=== PATIENT | female | born 1955 | race Caucasian/White ===

== ENCOUNTER 2017-02-22 06:37 | Inpatient (IN) | payer OTHER ==
[~2017-02-22] VITALS: Ht 157.5 cm; Wt 60.0 kg
[2017-02-22] MEDS ORDERED: CEFPODOXIME PR200 MG PO (10:48)
[2017-02-22] MEDS ORDERED: DOXYCYCLINE MO100 MG PO (10:50)
[2017-02-22] MEDS ORDERED: FLAGYL500 MG PO (10:50)
[2017-02-22] MEDS ORDERED: MILLIPRED5 MG PO (10:51)
[2017-02-22] MEDS ORDERED: TENORMIN 50 MG50 MG PO (10:52)
[2017-02-22] MEDS ORDERED: NEURONTIN 400400 MG PO (10:53)
[2017-02-22] MEDS ORDERED: OMEPRAZOLE20 MG PO (10:53)
[2017-02-22] MEDS ORDERED: LORTAB 5-325 M1 EACH PO (10:55)
[2017-02-22] MEDS ORDERED: ISOSORBIDE MONO60 MG PO (10:55)
[2017-02-22] MEDS ORDERED: JANUVIA 100 MG100 MG PO (10:56)
[2017-02-22] MEDS ORDERED: PROTONIX 40 MG40 M1 PO (10:57)
[2017-02-22] MEDS ORDERED: KLONOPIN TAB 00.5 MG PO (10:57)
[2017-02-22] MEDS ORDERED: TESSALON PERLE100 MG PO (10:58)
[2017-02-22] MEDS ORDERED: NORVASC 5 MG TAB5 MG PO (10:58)
[2017-02-22] MEDS ORDERED: GLUCOPHAGE 500500 MG PO (10:59)
[2017-02-22] MEDS ORDERED: AZITHROMYCIN250 MG PO (11:00)
[2017-02-22] MEDS ORDERED: PREDNISOLONE SO10 MG PO (11:01)
[2017-02-22] MEDS ORDERED: TRAZODONE HCL150 MG PO (11:01)
[2017-02-23 04:03] LABS: BUN/CREATININE RATIO 24 (0-10)
[2017-02-23 05:08] LABS: RED BLOOD COUNT 3.07 M/UL (4.00-5.10); WHITE BLOOD COUNT 14.2 K/UL (4.5-11.0)
[2017-02-23 05:10] LABS: HEMOGLOBIN 6.8 gm/dl (12.3-15.3)
[2017-02-24 08:16] LABS: WHITE BLOOD COUNT 12.3 K/UL (4.5-11.0)
[2017-02-24 08:18] LABS: RED BLOOD COUNT 4.74 M/UL (4.00-5.10)
[2017-02-24 08:32] LABS: BUN/CREATININE RATIO 28 (0-10)
[2017-02-24 12:45] LABS: HEMOGLOBIN 11.5 gm/dl (12.3-15.3)
[2017-02-25 05:21] LABS: HEMOGLOBIN 11.1 gm/dl (12.3-15.3); RED BLOOD COUNT 4.65 M/UL (4.00-5.10); WHITE BLOOD COUNT 12.4 K/UL (4.5-11.0)
[2017-02-25 05:25] LABS: BUN/CREATININE RATIO 30 (0-10)
[2017-02-27 05:00] LABS: HEMOGLOBIN 12.2 gm/dl (12.3-15.3); RED BLOOD COUNT 5.23 M/UL (4.00-5.10); WHITE BLOOD COUNT 10.1 K/UL (4.5-11.0)
[2017-02-27 05:22] LABS: BUN/CREATININE RATIO 28 (0-10)
[2017-02-28 06:25] LABS: HEMOGLOBIN 11.1 gm/dl (12.3-15.3); RED BLOOD COUNT 4.66 M/UL (4.00-5.10); WHITE BLOOD COUNT 9.3 K/UL (4.5-11.0)
[2017-02-28 06:43] LABS: BUN/CREATININE RATIO 28 (0-10)
[2017-03-01 07:00] LABS: BUN/CREATININE RATIO 33 (0-10)
[2017-03-01 07:28] LABS: HEMOGLOBIN 12.1 gm/dl (12.3-15.3); RED BLOOD COUNT 5.11 M/UL (4.00-5.10); WHITE BLOOD COUNT 10.5 K/UL (4.5-11.0)
[2017-03-03 08:34] LABS: BUN/CREATININE RATIO 32 (0-10)
[2017-03-06] MEDS ORDERED: LASIX 40 MG TAB40 MG PO (12:25)
[2017-03-06] MEDS ORDERED: LOPRESSOR50 MG PO (12:26)
[2017-03-06] MEDS ORDERED: K-DUR TAB 20 M20 MEQ PO (12:28)
[2017-03-06] MEDS ORDERED: PAIN RELIEF325 MG PO (12:30)
[2017-03-06] MEDS ORDERED: IPRAT-ALBUT 0.5-3 ML INH (12:31)
[2017-03-06] MEDS ORDERED: COMBIVENT0.074 GM/I INH (12:35)
[2017-03-06] MEDS ORDERED: FERROUS SULFAT325 M2 PO (12:36)
[2017-03-06] MEDS ORDERED: THERAGRAN M TAB1 EA PO (12:37)
--- NOTE | 2017-03-06 14:42 | NUR ---
PATIENT AMBULATES IN HALLWAY X 2, ROOM AIR, PULSE OX 96-97% NO RESPIRATORY DISTRESS NOTED. MICROBIOLOGICAL LAB TECHNICIAN AVAILABLE AND SHE NOTIFIED MD
== END 2017-03-06 15:16 | disposition short-term general hospital (02) | DRG 208 ==
LOC: CCU 09:44 → MED SURG 4 02-27 11:33
PROVIDERS: Family Medicine; Internal Medicine Infectious Disease; Internal Medicine Pulmonary Disease; Physician Assistant; ADMIT Internal Medicine
PROC: 5A1945Z Respiratory Ventilation, 24-96 Consecutive Hours (ICD-10-PCS; principal; 2017-02-22)
PROC: 0BH17EZ Insertion of Endotracheal Airway into Trachea, Via Natural or Artificial Opening (ICD-10-PCS; principal; 2017-02-22)
PROC: 0BJ08ZZ Inspection of Tracheobronchial Tree, Via Natural or Artificial Opening Endoscopic (ICD-10-PCS; 2017-02-23)
PROC: 0B9B8ZX Drainage of Left Lower Lobe Bronchus, Via Natural or Artificial Opening Endoscopic, Diagnostic (ICD-10-PCS; 2017-02-23)
PROC: 30233N1 Transfusion of Nonautologous Red Blood Cells into Peripheral Vein, Percutaneous Approach (ICD-10-PCS; 2017-02-23)
DX: J96.22 Acute and chronic respiratory failure with hypercapnia (principal); I50.33 Acute on chronic diastolic (congestive) heart failure; J69.0 Pneumonitis due to inhalation of food and vomit; E87.2 Acidosis; J44.0 Chronic obstructive pulmonary disease with (acute) lower respiratory infection; T40.2X1A Poisoning by other opioids, accidental (unintentional), initial encounter; J96.21 Acute and chronic respiratory failure with hypoxia; F17.210 Nicotine dependence, cigarettes, uncomplicated; Y92.009 Unspecified place in unspecified non-institutional (private) residence as the place of occurrence of the external cause; J44.9 Chronic obstructive pulmonary disease, unspecified; Z86.19 Personal history of other infectious and parasitic diseases; E11.9 Type 2 diabetes mellitus without complications; I10 Essential (primary) hypertension; Z91.19 Patient's noncompliance with other medical treatment and regimen; Z85.118 Personal history of other malignant neoplasm of bronchus and lung; Z79.891 Long term (current) use of opiate analgesic; Z79.52 Long term (current) use of systemic steroids; Z79.899 Other long term (current) drug therapy; Z80.1 Family history of malignant neoplasm of trachea, bronchus and lung; Z83.3 Family history of diabetes mellitus; Z82.49 Family history of ischemic heart disease and other diseases of the circulatory system; G89.4 Chronic pain syndrome; D64.9 Anemia, unspecified; Z90.2 Acquired absence of lung [part of]; I27.2 Other secondary pulmonary hypertension; R94.5 Abnormal results of liver function studies; Z87.898 Personal history of other specified conditions; Z88.1 Allergy status to other antibiotic agents; Z88.8 Allergy status to other drugs, medicaments and biological substances; R13.13 Dysphagia, pharyngeal phase; Z85.21 Personal history of malignant neoplasm of larynx; F41.9 Anxiety disorder, unspecified; K21.9 Gastro-esophageal reflux disease without esophagitis; Z99.81 Dependence on supplemental oxygen
CPT/HCPCS: ECHO; 36415; 36430; 36600; 71010; 80048; 80053; 80202; 82270; 82272; 82550; 82553; 82803; 82962; 83036; 83605; 83735; 83880; 84132; 84484; 85014; 85018; 85025; 85027; 86850; 86900; 86901; 86902; 86905; 86920; 86922; 86978; 87040; 87070; 87086; 87205; 92610; 93005; 93306; 94002; 94003; 94640; 94664; 97110; 97116; 97530; C9113; J0692; J1120; J1200; J1335; J1650; J1940; J3370; J7030; J7040; J7050; J7070; P9016